=== PATIENT | male | born 1995 | race Caucasian/White ===

== ENCOUNTER 2023-08-27 01:39 | Emergency (ER) | payer SELFPAY ==
[~2023-08-27] VITALS: Ht 177.8 cm; Wt 73.1 kg
[2023-08-27 02:43] LABS: Urine WBC None Seen /hpf (0 - 3)
[2023-08-27 03:26] LABS: Urine Bacteria NONE SEEN /hpf (None Seen); Urine Blood Negative /uL (Negative); Urine Clarity HAZY (Clear); Urine Color Yellow (Yellow); Urine Hyaline Cast FEW /lpf (0 - 2); Urine Protein, UAD TRACE (Negative); Urine Specific Gravity 1.023 (1.001-1.035); Urine Sperm PRESENT /hpf (None Seen); Urine Urobilinogen Normal (Negative); Urine pH 5.5 (5.0-8.0)
[2023-08-27] MEDS ORDERED: ACETAMINOPHEN 325 MG TAB PO ONE (03:30)
[2023-08-27 03:55] LABS: Eosinophils # (auto) 0 10 ^3/uL (0-0.8); Lymphocytes # (auto) 1.2 10 ^3/uL (0.4-5.4)
[2023-08-27 03:58] LABS: Basophils # (auto) 0.1 10 ^3/uL (0-0.2); Basophils % (auto) 0.4 % (0.0-2.0); Hematocrit 44.2 % (41.0-53.0); Hemoglobin 14.4 g/dL (13.5-17.5); Lymphocytes % (auto) 8.6 % (10.0-50.0); Mean Corpuscular Hemoglobin 23.9 pg (28.0-32.0); Mean Corpuscular Hgb Conc. 32.6 g/dL (32.0-36.0); Mean Corpuscular Volume 73.5 fL (80.0-100.0); Monocytes % (auto) 7.2 % (0.0-12.0); Neutrophils # (auto) 11.5 10 ^3/uL (1.6-8.6); Neutrophils % (auto) 83.8 % (37.0-80.0); Nucleated Red Blood Cells % 0.2 %; Red Blood Cells 6.02 10^6/uL (4.5-5.90); Red Cell Distribution Width 17.2 % (11.8-14.3); White Blood Cell 13.7 10^3/uL (4.4-10.8)
[2023-08-27 04:03] LABS: Amphetamine Screen, Urine Pos (NEGATIVE); Barbiturate Scree,Urine Neg (NEGATIVE); Benzodiazephine Screen, Urine Neg (NEGATIVE); Cannabinoid Screen, Urine Pos (NEGATIVE); Cocaine Screen, Urine Neg (NEGATIVE); Opiate Scree,Urine Neg (NEGATIVE); Phencyclidine Screen, Urine Neg (NEGATIVE)
[2023-08-27 04:08] LABS: Acetaminophen < 2.0 UG/ML (10.0-20.0); Alanine Aminotransferase 35 U/L (7-40); Albumin 4.7 g/dL (3.2-4.8); Alkaline Phosphatase 81 U/L (46-116); Anion Gap 9 (5-15); Aspartate Aminotransferase 45 U/L (13-40); BUN/Creatinine Ratio 8.3 (10.0-20.0); Bilirubin, Total 0.8 mg/dL (0.2-1.0); Blood Alcohol 4.6 mg/dL (<10); Blood Urea Nitrogen 10 mg/dL (9-23); Calcium 9.3 mg/dL (8.7-10.4); Carbon Dioxide 24 mmol/L (20-30); Chloride 101 mmol/L (98-107); Glucose 111 mg/dL (74-106); Magnesium 1.7 mg/dL (1.6-2.6); Potassium 3.7 mmol/L (3.5-5.1); Sodium 134 mmol/L (136-145)
[2023-08-27 04:09] LABS: Total Protein 7.4 g/dL (5.7-8.2)
[2023-08-27 04:25] LABS: Salicylate < 3.0 mg/dL (2.8-20.0)
[2023-08-27 08:17] VITALS: RESP 16; O2SAT 98
[2023-08-27] MEDS ORDERED: ACETAMINOPHEN 500 MG TAB PO PRN (09:45)
[2023-08-27] MEDS: OLANZapine 5 MG TAB PO SCH ×2 (14:00→22:00)
[2023-08-27 21:00] VITALS: PULSE 83; RESP 12; O2SAT 95
[2023-08-28] MEDS: OLANZapine 5 MG TAB PO SCH ×3 (06:00→21:34)
[2023-08-29] MEDS: OLANZapine 5 MG TAB PO SCH ×3 (06:52→23:34)
[2023-08-29 07:36] VITALS: PULSE 104; RESP 16; O2SAT 97
[2023-08-30] MEDS: OLANZapine 5 MG TAB PO SCH ×2 (07:02→15:39)
[2023-08-30 07:22] VITALS: BP 113/76; PULSE 104; RESP 20; TEMP 97.4; O2SAT 96
== END 2023-08-30 16:22 | disposition home or self-care (01) ==
LOC: ER 01:39
DX: F12.20 Cannabis dependence, uncomplicated (principal); F32.9 Major depressive disorder, single episode, unspecified; F41.9 Anxiety disorder, unspecified; F20.9 Schizophrenia, unspecified; F15.90 Other stimulant use, unspecified, uncomplicated
CPT/HCPCS: 36415; 70450; 71045; 80053; 80307; 80320; 80329; 81001; 83735; 85025